=== PATIENT | female | born 1960 | race Caucasian/White ===

== ENCOUNTER 2024-01-06 21:42 | Emergency (ER) | payer BC, SELFPAY ==
[2024-01-06 21:46] VITALS: BP 153/84; PULSE 74; RESP 18; TEMP 36.7; O2SAT 97; BMI 34.9
[2024-01-06 23:45] VITALS: BP 150/78; PULSE 63; RESP 16; O2SAT 99
--- NOTE | 2024-01-06 23:48 | CTR_ITS ---
PROCEDURE INFORMATION: Exam: CT Cervical Spine Without Contrast Exam date and time: 01/07/2024 12:16 AM Age: 63 years old Clinical indication: Weakness; Additional info: Weakness numbness bilat upper ext TECHNIQUE: Imaging protocol: Computed tomography of the cervical spine without contrast. Radiation optimization: All CT scans at this facility use at least one of these dose optimization techniques: automated exposure control; mA and/or kV adjustment per patient size (includes targeted exams where dose is matched to clinical indication); or iterative reconstruction. COMPARISON: CT head wo con* [id number] 01/07/2024 12:16 AM RADIATION DOSE METRICS: Total DLP (mGy-cm): 512.5 FINDINGS: Bones: Bone mineralization is decreased, suggestive of osteopenia. No acute cervical spine fracture is identified. There is straightening of the normal cervical lordosis. Moderate/severe degenerative changes of the cervical spine are present. There is no severe spinal canal stenosis. Multilevel neural foraminal narrowing from uncinate spurring and facet arthropathy is noted. Lungs: The lung apices are clear. Soft tissues: Unremarkable. CT/CT cervical spin wo con* [id number] IMPRESSION: 1. No acute abnormality. 2. Chronic findings as discussed above.
--- NOTE | 2024-01-06 23:48 | CTR_ITS ---
PROCEDURE INFORMATION: Exam: CT Head Without Contrast Exam date and time: 01/07/2024 12:16 AM Age: 63 years old Clinical indication: Weakness, extremity; Additional info: Weakness numbness bilat upper ext TECHNIQUE: Imaging protocol: Computed tomography of the head without contrast. Radiation optimization: All CT scans at this facility use at least one of these dose optimization techniques: automated exposure control; mA and/or kV adjustment per patient size (includes targeted exams where dose is matched to clinical indication); or iterative reconstruction. COMPARISON: CT cervical spin wo con* [id number] 01/07/2024 12:16 AM RADIATION DOSE METRICS: Total DLP (mGy-cm): 1055.4 FINDINGS: Brain: No acute intracranial hemorrhage, cerebral edema, or midline shift. Cerebral ventricles: No hydrocephalus. Paranasal sinuses: There is no acute sinusitis. Mastoid air cells: Visualized mastoid air cells are well aerated. Orbital cavities: The visualized orbits appear unremarkable. Bones: Unremarkable. No acute fracture. Soft tissues: Unremarkable. CT/CT head wo con* [id number] IMPRESSION: No acute intracranial abnormality.
--- NOTE | 2024-01-06 23:56 | W.ED.WEAKNES ---
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 She felt like her hands were just rubber. This lasted a couple hours. While she was waiting in the waiting room to brought back to the ER is actually resolved and now she is back to normal. 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 Patient denied any cough cold fevers chills nausea vomiting diarrhea chest pain shortness of breath. Review of Systems General: Reports: 10 or more systems reviewed and unremarkable except in HPI and below Physical Exam Const: COMMON NORMALS: no acute distress, average body habitus, patient oriented x3, no limitations, healthy appearing, alert and well nourished HENMT: COMMON NORMALS: normocephalic, atraumatic, hearing grossly normal bilaterally, external ears normal, Normal external nose present and moist oral mucous membranes HEAD & SCALP: normocephalic and atraumatic NOSE: Normal external nose present EXTERNAL EAR: Yes external ears normal Eye: COMMON NORMALS: Equal, round and reactive pupils present, EOMs intact bilaterally, conjunctivae normal and no scleral icterus CONJUNCTIVA: Yes conjunctivae normal PUPIL: Yes Equal, round and reactive pupils present Neck/C-Spine: COMMON NORMALS: full ROM, no lymphadenopathy, supple, no meningeal signs, no JVD and Thyroid normal THYROID: Thyroid normal Chest: COMMONS NORMALS: normal inspection of the chest and normal palpation of entire chest wall Resp: COMMON NORMALS: normal respiratory effort, No retractions, No use of accessory muscles and clear to auscultation bilaterally AUSCULTATION: clear to auscultation bilaterally Cardio: COMMON NORMALS: no JVD, regular rate, regular rhythm, S1 normal heart sound present, S2 normal heart sound present, No gallops present (Cardio), No clicks present (Cardio), No murmurs present (Cardio) and No rub (Cardio) RATE: regular rate RHYTHM: regular rhythm HEART SOUNDS: S1 normal heart sound present and S2 normal heart sound present GI: COMMON NORMALS: Normal to inspection, nondistended, normoactive bowel sounds present, Soft to palpation, non-tender, No hepatosplenomegaly present and no masses PALPATION: Yes Soft to palpation and Yes No hepatosplenomegaly present Neuro: COMMON NORMALS: patient oriented x3 SENSORIUM/ORIENTATION: Yes alert MENINGEAL SIGNS: Yes no meningeal signs Course Vital Signs: Vital signs: Vital Signs Temperature 98.0 F 01/06/24 21:46 Pulse Rate 59 L 01/07/24 02:30 Respiratory Rate 16 01/07/24 02:30 Blood Pressure 117/70 01/07/24 02:30 Pulse Oximetry 97 01/07/24 02:30 Oxygen Delivery Me thod Room Air 01/06/24 21:46 MDM - Weakness Medical Decision Making Exam was benign, lab work included CBC CMP urinalysis magnesium, white count was 13.5, potassium was 3.1, cervical spine CT and head CT both negative. Patient is currently on Lasix and potassium. We will discharge patient she can follow-up with her PCP for further evaluation and treatment. Differential Diagnosis Unlikely acute myocardial infarction, anemia, hypoglycemia, hypothyroidism, rhabdomyolysis, sepsis or dehydration Medical Records I reviewed the patient's medical records. Lab Data I reviewed the patient's lab results. 01/06/24 00:07 01/06/24 00:07 Radiology Impressions Cervical Spine CT 01/06/24 23:48 IMPRESSION: 1. No acute abnormality. 2. Chronic findings as discussed above. Head CT 01/06/24 23:48 IMPRESSION: No acute intracranial abnormality. Laboratory Results WBC 13.50 10^3/uL (3.29-11.43) H 01/06/24 00:07 RBC 4.55 10^6/uL (3.85-5.65) 01/06/24 00:07 Hgb 13.40 g/dL (11.27-16.99) 01/06/24 00:07 Hct 40.7 % (36-47) 01/06/24 00:07 MCV 89.5 fl (85-98) 01/06/24 00:07 MCH 29.5 pg (27-33) 01/06/24 00:07 MCHC 32.9 g/dL (30-55) 01/06/24 00:07 RDW 14.3 % (12.1-15.1) 01/06/24 00:07 Plt Count 229 10^3/cmm (157-399) 01/06/24 00:07 MPV 10.6 fL (7.4-10.4) H 01/06/24 00:07 Neut % (Auto) 73.7 % 01/06/24 00:07 Lymph % (Auto) 17.5 % 01/06/24 00:07 [place] % (Auto) 5.9 % 01/06/24 00:07 Eos % (Auto) 1.9 % 01/06/24 00:07 Baso % (Auto) 0.5 % 01/06/24 00:07 Neut # (Auto) 9.94 10^3/uL (1.8-7.7) H 01/06/24 00:07 Lymph # (Auto) 2.4 10^3/uL (0.8-4.8) 01/06/24 00:07 [place] # (Auto) 0.8 10^3/uL (0.2-0.9) 01/06/24 00:07 Eos # (Auto) 0.3 10^3/uL (0.0-0.8) 01/06/24 00:07 Baso # (Auto) 0.1 10^3/uL (0.0-0.1) 01/06/24 00:07 Nucleated RBC % (auto) 0 % 01/06/24 00:07 Nucleated RBCs # 0.0 /100WBC 01/06/24 00:07 Sodium 139 mmol/L (136-145) 01/06/24 00:07 Potassium 3.1 mmol/L (3.5-5.1) L 01/06/24 00:07 Chloride 97 mmol/L (98-107) L 01/06/24 00:07 Carbon Dioxide 28 mmol/L (22-29) 01/06/24 00:07 Anion Gap 17.1 (5-19) 01/06/24 00:07 BUN 21 mg/dL (8-23) 01/06/24 00:07 Creatinine 0.7 mg/dL (0.5-0.9) 01/06/24 00:07 GFR Calculation 84.2 mL/min (90-130) L 01/06/24 00:07 Glucose 107 mg/dL (65-115) 01/06/24 00:07 Calculated Osmolality 291 mOsm/kg (285-295) 01/06/24 00:07 Calcium 8.7 mg/dL (8.5-10.5) 01/06/24 00:07 Magnesium 1.7 mg/dL (1.7-2.3) 01/06/24 00:07 Total Bilirubin 0.6 mg/dL (0.15-1.2) 01/06/24 00:07 AST 14 U/L (0-32) 01/06/24 00:07 ALT 15 U/L (0-33) 01/06/24 00:07 Alkaline Phosphatase 84 U/L (35-105) 01/06/24 00:07 C-Reactive Protein 27.4 mg/L (0.0-4.9) H 01/06/24 00:07 Total Protein 6.6 g/dL (6.6-8.7) 01/06/24 00:07 Albumin 3.8 g/dL (3.5-5.2) 01/06/24 00:07 Globulin 2.8 g/dL (1.3-4.6) 01/06/24 00:07 Urine Color Yellow (Yellow) 01/07/24 01:28 Urine Appearance Cloudy (CLEAR) A 01/07/24 01:28 Urine pH 7 (5-7) 01/07/24 01:28 Ur Specific [place] 1.010 (1.005-1.030) 01/07/24 01:28 Urine Protein Neg (Negative) 01/07/24 01:28 Urine Glucose (UA) Norm (Normal) 01/07/24 01:28 Urine Ketones Negative (Negative) 01/07/24 01:28 Urine Blood 2+ (Negative) H 01/07/24 01:28 Urine Nitrate Negative (Negative) 01/07/24 01:28 Urine Bilirubin Neg (Negative) 01/07/24 01:28 Urine Urobilinogen 1 mg/dL (Negative) H 01/07/24 01:28 Ur Leukocyte Esterase 1+ (Negative) H 01/07/24 01:28 Urine RBC 5-10 /hpf (0-2) H 01/07/24 01:28 Urine WBC 10-15 /hpf (0-5) H 01/07/24 01:28 Ur Squamous Epith Cells None /hpf (0-5) 01/07/24 01:28 Amorphous Sediment Not Reportable 01/07/24 01:28 Urine Bacteria 4+ /hpf (NONE) H 01/07/24 01:28 All radiology interpretation(s) finalized by discharge Discharge Plan Discharge Patient Disposition: Home Clinical Impression: Bilateral arm weakness, Acute hypokalemia Condition: Stable Discharge Orders: Discharge ED (Routine); Ordered 01/07/24 Ordered By: Cj Dwyer Patient Instructions: Weakness (ED) Activity Restrictions/Additional Instructions: CT scan of your head, neck, and your lab work was reviewed all of it was essentially benign, your potassium was slightly low at 3.1, please follow-up with your family physician within the next 7 to 10 days as they may want to adjust your potassium dose. Coding Level of Care Code ED Assistant [employer]S [employer] for Anupama Berry
[2024-01-07 00:22] LABS: Basophils # 0.1 10^3/uL (0.0-0.1); Basophils % 0.5 %; Eosinophils # 0.3 10^3/uL (0.0-0.8); Eosinophils % 1.9 %; Hematocrit 40.7 % (36-47); Lymphocytes # 2.4 10^3/uL (0.8-4.8); Lymphocytes % 17.5 %; Mean Corpuscular HGB Conc 32.9 g/dL (30-55); Mean Corpuscular Hemoglobin 29.5 pg (27-33); Mean Corpuscular Volume 89.5 fl (85-98); Mean Platelet Volume 10.6 fL (7.4-10.4); Monocytes # 0.8 10^3/uL (0.2-0.9); Monocytes % 5.9 %; Neutrophils # 9.94 10^3/uL (1.8-7.7); Neutrophils % 73.7 %; Nucleated Red Blood Cells % 0 %; Platelet Count 229 10^3/cmm (157-399); Red Blood Count 4.55 10^6/uL (3.85-5.65); Red Cell Distribution Width 14.3 % (12.1-15.1)
[2024-01-07 00:39] LABS: Alanine Aminotransferase 15 U/L (0-33); Albumin Level 3.8 g/dL (3.5-5.2); Alkaline Phosphatase 84 U/L (35-105); Aspartate Amino Transferase 14 U/L (0-32); Blood Urea Nitrogen 21 mg/dL (8-23); C Reactive Protein 27.4 mg/L (0.0-4.9); Calcium 8.7 mg/dL (8.5-10.5); Carbon Dioxide 28 mmol/L (22-29); Chloride 97 mmol/L (98-107); Creatinine Clr Calc Pharmacy 92.6723; Globulin 2.8 g/dL (1.3-4.6); Glomerular Filtration Rate 84.2 mL/min (90-130); Glucose 107 mg/dL (65-115); Magnesium 1.7 mg/dL (1.7-2.3); Osmolality Calculated 291 mOsm/kg (285-295); Sodium 139 mmol/L (136-145); Total Bilirubin 0.6 mg/dL (0.15-1.2); Total Protein 6.6 g/dL (6.6-8.7)
[2024-01-07 00:41] LABS: Anion Gap 17.1 (5-19); Potassium 3.1 mmol/L (3.5-5.1)
[2024-01-07 01:57] LABS: Urine Appearance Cloudy (CLEAR); Urine Color Yellow (Yellow); pH Urine 7 (5-7)
[2024-01-07 01:58] LABS: Add Urine Culture? Yes; Add Urine Microscopic? YES; Bacteria Urine 4+ /hpf; Bilirubin Urine Neg (Negative); Blood Urine 2+ (Negative); Glucose Urine UA Norm (Normal); Ketones Urine Negative (Negative); Leukocyte Esterase Urine 1+ (Negative); Nitrate Urine Negative (Negative); Protein Urine Neg (Negative); Urobilinogen Urine 1 mg/dL (Negative)
[2024-01-07 02:30] VITALS: BP 117/70; PULSE 59; RESP 16; O2SAT 97
[2024-01-07 02:48] VITALS: BP 117/70; PULSE 59; RESP 16; TEMP 36.7; O2SAT 97
== END 2024-01-07 02:48 | disposition home or self-care (01) ==
PROVIDERS: Emergency Provider Emergency Medicine
DX: R53.1 Weakness (principal); E87.6 Hypokalemia
CPT/HCPCS: 70450; 72125; 80053; 81001; 83735; 85025; 86140; 87077; 87086; 87186; 99284